=== PATIENT | male | born 1995 | race Caucasian/White ===

== ENCOUNTER 2017-11-30 19:49 | Emergency (ER) | payer OTHER ==
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
[2017-11-30] MEDS ORDERED: LET GEL TOPICAL 1 EA SYR TP ONE (20:57)
[2017-11-30] MEDS ORDERED: IBUPROFEN 800 MG TAB PO ONE (21:08)
[2017-11-30 21:30] VITALS: BP 122/71
== END 2017-11-30 22:09 | disposition home or self-care (01) ==
DX: S62.317A Displaced fracture of base of fifth metacarpal bone, left hand, initial encounter for closed fracture (principal); V17.0XXA Pedal cycle driver injured in collision with fixed or stationary object in nontraffic accident, initial encounter; Y92.89 Other specified places as the place of occurrence of the external cause; Y99.8 Other external cause status; Y93.55 Activity, bike riding